=== PATIENT | female | born 1950 | race Hispanic/Latino ===

== ENCOUNTER 2020-02-16 18:37 | Inpatient (IN) | payer MEDICARE ==
[~2020-02-16] VITALS: Ht 152.4 cm; Wt 64.9 kg
[2020-02-16] MEDS ORDERED: DiphenhydrAMINE HCL 50 MG/ML VIAL ONE (19:37)
[2020-02-16] MEDS ORDERED: HYDROMORPHONE 1 MG/1 ML AMP ONE (19:38)
[2020-02-16] MEDS ORDERED: HYDROMORPHONE HCL 0.5 MG/0.5 ML ML IVP PRN (22:00)
[2020-02-16] MEDS ORDERED: ONDANSETRON HCL 4 MG/2 ML VIAL IV PRN (22:00)
[2020-02-17 00:10] VITALS: BP 152/86; PULSE 97; RESP 18; TEMP 98.1
[2020-02-17] MEDS: SODIUM CHLORIDE 0.9% 1000ML 1,000 ML IV SCH ×2 (00:27→17:19)
[2020-02-17] MEDS ORDERED: DEXTROSE 50%-WATER 50 ML DISP.SYRIN IV PRN (01:00)
[2020-02-17] MEDS ORDERED: GLUCAGON 1MG KIT 1 MG ML IM PRN (01:00)
[2020-02-17 04:00] VITALS: BP 131/84; PULSE 85; RESP 18; TEMP 98
[2020-02-17] MEDS: INSULIN HUMULIN R 100 UNIT/ML 3ML SQ SCH ×4 (06:31→20:47)
[2020-02-17] MEDS: HYDROMORPHONE HCL 0.5 MG/0.5 ML ML IVP PRN ×2 (08:10→12:14)
[2020-02-17 08:39] VITALS: BP 165/75; PULSE 92; RESP 20; TEMP 97.6
[2020-02-17] MEDS ORDERED: FAMOTIDINE/PF 20 MG/2 ML VIAL IV SCH (09:00)
[2020-02-17] MEDS ORDERED: FUROSEMIDE 40 MG TABLET PO PRN (10:45)
[2020-02-17] MEDS ORDERED: POLYETHYLENE GLYCOL 3350 17 GM POWD.PACK PO SCH (10:45)
[2020-02-17] MEDS ORDERED: SENNOSIDES 8.6 MG TABLET PO PRN (10:45)
[2020-02-17] MEDS: POLYETHYLENE GLYCOL 3350 17 GM POWD.PACK PO SCH (10:45)
[2020-02-17] MEDS ORDERED: MORPHINE SULFATE IR 15 MG TAB 15 MG TABLET PO PRN (10:45)
[2020-02-17] MEDS: LACTULOSE 20 GM/30 ML UDCUP PO PRN ×2 (10:50→20:40)
[2020-02-17] MEDS ORDERED: ONDANSETRON ODT 4 MG TAB PO PRN (11:00)
[2020-02-17 11:18] VITALS: BP 137/65; PULSE 91; RESP 18; TEMP 97.4
[2020-02-17] MEDS: METOCLOPRAMIDE 10 MG TABLET PO SCH ×2 (11:23→17:19)
[2020-02-17] MEDS: DOCUSATE SODIUM 100 MG CAP PO SCH (11:23)
[2020-02-17] MEDS ORDERED: FENTANYL 50 MCG/HR PATCH TD SCH (12:45)
[2020-02-17] MEDS ORDERED: PAMIDRONATE DISODIUM 90MG VIAL 90 MG in SODIUM CHLORIDE 0.9% 1000ML 1,000 ML IV SCH (14:00)
[2020-02-17] MEDS: MAGNESIUM OXIDE 400 MG TABLET PO SCH ×2 (14:34→20:40)
[2020-02-17] MEDS: MORPHINE-NS 50 MG/50 ML 50 ML IV PRN (14:34)
--- NOTE | 2020-02-17 15:23 | NUR ---
[id number] patient's daughter signed IM Letter, I faxed IM Letter to [id number] and placed in chart under consent tab.
--- NOTE | 2020-02-17 15:35 | NUR ---
ADITI NOTE/IA MEET WITH PATIENT IN ROOM WITH DAUGHTER AT BEDSIDE. LIVES WITH DAUGHTER AND DAUGHTERS 2 MINOR CHILDREN, INDEPENDENT WITH ADLS, HAS WHEELCHAIR, ROLLATOR WALKER AND SHOWER CHAIR, PROVIDER DAILY AND RESPITE PROGRAM IF NEEDED, AND FEELS SAFE RETURNING HOME ONCE STABLE AND DISCHARGED FROM HOSPITAL. N Addendum: 02/19/20 at 1537 by ELIJAH GAINES RN CM Amended: Links added.
[2020-02-17 16:37] VITALS: BP 173/80; PULSE 89; RESP 18; TEMP 98.1
[2020-02-17 19:00] VITALS: BP 157/75; PULSE 105; RESP 18; TEMP 98.8
[2020-02-17] MEDS ORDERED: ACETAMINOPHEN 325 MG TAB PO PRN (19:15)
--- NOTE | 2020-02-17 19:39 | NUR ---
shift summary; pt has had problem with adequate pain control throught out the day; her home meds were restarted early in the day and the ms contin oral and diluadid iv q4 hrs was not taking care of her pain, pt would still rate pain at a 10 after receiving medications; dr thomas was then consulted for pain management and her discontinued all current pain meds and ordered to start a morphine plastic process technician with basal rate and 1 hour demand; after pt had the plastic process technician for about an hour she stated her pain level is about half of what it was before rating her pain at a 5 and she was satisfied and happy with that; pt has also been c/o constipation even though she had 2 bowelmovements today; i gave her lactulose, colace and prune juice to assist with this; pt's daughter has been here with her for most of the day; dr john did come and personally talk to daughter and update her on patient; pt's daughter stated several times that if we cant get her mothers pain in adequate control she was going to check her out and drive her to [facility] where she gets her cancer treatment at and current pain medication therapy ordered.
[2020-02-17] MEDS: LOSARTAN 50 MG TABLET PO SCH (20:40)
--- NOTE | 2020-02-17 22:15 | NUR ---
anxiety and pain PATIENT COMPLAINS OF ANXIETY AND PAIN. TARIQ DANIELS SUPERVISOR SAMPLE PREPARATION NOTIFIED AND ORDERS GIVEN FOR ATIVAN AND EXTRA DOES OF MORPHINE.
[2020-02-17] MEDS ORDERED: LORAZEPAM 1 MG TABLET ONE (22:35)
[2020-02-17] MEDS ORDERED: MORPHINE SULFATE 2 MG/ML 1ML SYG ONE (22:36)
[2020-02-17] MEDS ORDERED: MORPHINE SULFATE 2 MG/ML 1ML SYG IVP ONE (22:45)
[2020-02-17] MEDS ORDERED: LORAZEPAM 1 MG TABLET PO PRN (22:45)
[2020-02-18] VITALS: BP 162/74; PULSE 112; RESP 18; TEMP 98.5
--- NOTE | 2020-02-18 01:00 | NUR ---
CONFUSION PATIENT CONFUSED TRYING TO GET OUT OF BED. BED ALARM PLACED AND PATIENT REORIENTED.
--- NOTE | 2020-02-18 02:00 | NUR ---
CONFUSION PATIENT TRYING TO GET OUT OF BED. WE TRIED TO ASSIST PATIENT TO RESTROOM BUT SHE WAS TOO DROWSY AND UNSTEADY AND WAS TAKEN BACK TO BED.
[2020-02-18 04:00] VITALS: BP 179/84; PULSE 113; RESP 19; TEMP 98.7
--- NOTE | 2020-02-18 04:30 | NUR ---
ANGRY PATIENT PULLED OUT ONE OF HER IVS AND STATED THE NURSING STAFF HAD DONE IT TO HER. PATIENT WAS REORIENT AND TOLD THE IV CAME OUT WHILE SHE WAS MOVING IN BED. I ATTEMPTED TO START ANOTHER IV AND STARTED TO STATE THAT THE STAFF WAS HARASSING HER AND TRYING TO HURT HER. I TRIED TO EXPLAIN THAT WE WERE NOT TRYING TO HURT HER BUT TRYING TO HELP HER. SHE CONTINUED TO STATE THAT I WAS BEING MEAN TO HER BY STARTING A NEW IV AND SHE DID NOT WANT ME HER NURSE. AT WHICH POINT I REACHED OUT TO THE [employer] AND CARE OF PATIENT WAS TRANSFERRED TO Wai HEMPHILL RN.
[2020-02-18] MEDS: METOCLOPRAMIDE 10 MG TABLET PO SCH ×3 (06:22→17:27)
[2020-02-18] MEDS: INSULIN HUMULIN R 100 UNIT/ML 3ML SQ SCH ×4 (06:30→20:43)
[2020-02-18 08:37] VITALS: BP 173/79; PULSE 108; RESP 17; TEMP 98.5
[2020-02-18] MEDS ORDERED: VOLTAREN 1% TP PRN (09:00)
[2020-02-18] MEDS: AFINITOR PO SCH (09:00)
[2020-02-18] MEDS: LOSARTAN 50 MG TABLET PO SCH ×2 (09:24→20:42)
[2020-02-18] MEDS: PYRIDOXINE HCL 50 MG TABLET PO SCH (09:24)
[2020-02-18] MEDS: PANTOPRAZOLE SODIUM 40 MG TABLET.DR PO SCH (09:24)
[2020-02-18] MEDS: POLYETHYLENE GLYCOL 3350 17 GM POWD.PACK PO SCH (09:24)
[2020-02-18] MEDS: MAGNESIUM OXIDE 400 MG TABLET PO SCH ×3 (09:24→20:42)
[2020-02-18] MEDS: DOCUSATE SODIUM 100 MG CAP PO SCH (10:45)
[2020-02-18] MEDS ORDERED: HYDROXYZINE HCL 50 MG/ML VIAL IM PRN (11:15)
[2020-02-18] MEDS ORDERED: HYDROXYZINE HCL 25 MG TABLET PO PRN (11:45)
[2020-02-18 12:58] VITALS: BP 175/78; PULSE 101; RESP 18; TEMP 98.9
[2020-02-18] MEDS ORDERED: HALOPERIDOL LACTATE 5 MG/ML VIAL IV PRN (13:30)
[2020-02-18] MEDS: SODIUM CHLORIDE 0.9% 1000ML 1,000 ML IV SCH (14:41)
[2020-02-18] MEDS: DEXAMETHASONE SOD PHOSPHATE 4 MG/ML 1ML VIAL IVP SCH ×2 (15:05→21:43)
--- NOTE | 2020-02-18 16:39 | NUR ---
DIRECTIVES Sw contacted by nurse Lima, daughter wanting to complete directives. Sw met with daughter Sola who states that Dr at [facility] told her that they needed to get pt's things in order, Directives, DNR and MPOA. Explained to daughter that pt is confused and under able to sign directives at this time. Educated daughter on Surrogate Decision maker Law. Pt has 7 children, who daughter states are all in agreement with making pt DNR DNI.Explained to daughter that we will need to speak to siblings to verify this. Sw educated on DNR vs OOHDNR and encouraged daughter to complete DNR DNI if this was pt's wishes. Sw to follow and assist as needed.
[2020-02-18 17:26] VITALS: BP 161/78; PULSE 102; RESP 20; TEMP 97.5
--- NOTE | 2020-02-18 18:52 | NUR ---
ASIF PLAN PATIENT LIVES WITH DAUGHTER, IND, WHEELCHAIR, R WALKER, SHOWER CHAIR, PROVIDER, HOME. Addendum: 02/18/20 at 1853 by CALI MORILLO RN CM Amended: Links added.
[2020-02-18] MEDS ORDERED: AMLODIPINE BESYLATE 5 MG TAB PO SCH (19:00)
[2020-02-18 20:00] VITALS: BP 162/79; PULSE 100; RESP 17; TEMP 98.3
[2020-02-19] VITALS: BP 168/86; PULSE 88; RESP 17; TEMP 98.1
[2020-02-19 04:00] VITALS: BP 161/78; PULSE 102; RESP 20; TEMP 97.5
[2020-02-19] MEDS: DEXAMETHASONE SOD PHOSPHATE 4 MG/ML 1ML VIAL IVP SCH ×3 (05:13→21:17)
[2020-02-19] MEDS: INSULIN HUMULIN R 100 UNIT/ML 3ML SQ SCH ×4 (05:44→20:17)
[2020-02-19] MEDS: METOCLOPRAMIDE 10 MG TABLET PO SCH ×3 (06:46→17:54)
[2020-02-19] MEDS: MORPHINE-NS 50 MG/50 ML 50 ML IV PRN (07:13)
[2020-02-19 08:00] VITALS: BP 144/88; PULSE 99; RESP 16; TEMP 97.7
[2020-02-19] MEDS: AFINITOR PO SCH (09:00)
[2020-02-19] MEDS: MAGNESIUM OXIDE 400 MG TABLET PO SCH ×3 (09:12→20:10)
[2020-02-19] MEDS: PYRIDOXINE HCL 50 MG TABLET PO SCH (09:12)
[2020-02-19] MEDS: LOSARTAN 50 MG TABLET PO SCH ×2 (09:13→20:10)
[2020-02-19] MEDS: POLYETHYLENE GLYCOL 3350 17 GM POWD.PACK PO SCH (09:13)
[2020-02-19] MEDS: PANTOPRAZOLE SODIUM 40 MG TABLET.DR PO SCH (09:13)
[2020-02-19] MEDS: SODIUM CHLORIDE 0.9% 1000ML 1,000 ML IV SCH (10:26)
[2020-02-19] MEDS: DOCUSATE SODIUM 100 MG CAP PO SCH (10:45)
[2020-02-19 11:46] VITALS: BP 124/56; PULSE 84; RESP 18; TEMP 97.7
[2020-02-19] MEDS: LACTULOSE 20 GM/30 ML UDCUP PO PRN (12:49)
--- NOTE | 2020-02-19 13:45 | NUR ---
DIRECTIVES & PALLIATIVE CARE Consult for Dr Womack Sw met with pt who is awake alert and oriented today and daughter Sola. Daughter stated that pt is not aware of severity of her condition and wants conversation with pt about directives "very general". Sw educated on MPOA and Directives. Pt states that daughter Sola has always been the one to care for her and go to MD appts and knows the most about pt's condition. Pt stated that she wants Sola to discuss decisions with her siblings and together they make decisions. Pt stated the same for any decisions related to life support and CPR. Pt signed MPOA and original given to daughter. Sw spoke to daughter outside room and informed of Dr Womack consult. Daughter states that her brother was asking if Dr womack could meet with the pt and family to discuss options. Explained to daughter that Dr Womack will be very honest and directs conversation to pt regarding her condition, prognosis and options. Daughter voiced understanding. Sw called Dr Womack who can meet with pt and family at 4 today. Daughter to have siblings come to hospital to be present for family meeting. Sw to follow and assist as needed
--- NOTE | 2020-02-19 15:30 | NUR ---
Dr Mensah Consult , and nurse Lima were present for family meeting with pt and her 3 kids and 2 daughter in laws. Pt told Dr Mensah that she was not wanting to know about her current condition, that she was aware that she had cancer and that it was spreading, but she was not wanting to know details. Pt stated she felt that knowing was only going to make her sad and anxious and she preferred not know. Dr Mensah explained that he'd seen records from [facility] and plan for her to continue radiation next week and he was in agreement with plan. Dr Mensah explained to pt that it was important for pt and family to plan for after radiation so that everyone was on same page and knew what pt's wishes were in event of an emergency. After a long talk, pt and family all expressed their feelings, pt was able to voice her wishes of wanting to be comfortable and at peace when her time came. Pt stated that she would not want to be kept on machines or be resuscitated. meeting was cut short when pt stated she needed to go to bathroom. Dr Mensah met with children outside of room and answered all questions asked. Family stated they all are on the same page with pt having radiation treatments and hospice after. Family also in agreement with signing OOHDNR so that pt does not have to. OOHDNR was completed and daughter RUTH ANN Selby signed. Family very appreciative to Dr Mensah for facilitating this conversation with pt and family. Children had not been able to have this discussion with pt and children were at peace with what they heard and what they were able to say to pt.
[2020-02-19 16:00] VITALS: BP 141/68; PULSE 94; RESP 18; TEMP 97.9
[2020-02-19 20:00] VITALS: BP 140/77; PULSE 94; RESP 18; TEMP 96.4
[2020-02-19] MEDS: MORPHINE SULFATE 15 MG TABLET.SA PO SCH (20:10)
[2020-02-19] MEDS ORDERED: MORPHINE SULFATE IR 15 MG TAB 15 MG TABLET PO SCH (21:00)
[2020-02-20] VITALS: BP 152/85; PULSE 88; RESP 18; TEMP 97.5
[2020-02-20 04:00] VITALS: BP 124/53; PULSE 82; RESP 16; TEMP 98.1
[2020-02-20] MEDS: SODIUM CHLORIDE 0.9% 1000ML 1,000 ML IV SCH (05:25)
[2020-02-20] MEDS: DEXAMETHASONE SOD PHOSPHATE 4 MG/ML 1ML VIAL IVP SCH ×2 (05:25→15:55)
[2020-02-20] MEDS: INSULIN HUMULIN R 100 UNIT/ML 3ML SQ SCH ×3 (05:33→16:30)
[2020-02-20] MEDS: AFINITOR PO SCH (08:14)
[2020-02-20] MEDS: PYRIDOXINE HCL 50 MG TABLET PO SCH (09:04)
[2020-02-20] MEDS: PANTOPRAZOLE SODIUM 40 MG TABLET.DR PO SCH (09:04)
[2020-02-20] MEDS: METOCLOPRAMIDE 10 MG TABLET PO SCH ×3 (09:04→15:55)
[2020-02-20] MEDS: MORPHINE SULFATE 15 MG TABLET.SA PO SCH (09:05)
[2020-02-20] MEDS: LOSARTAN 50 MG TABLET PO SCH (09:05)
[2020-02-20] MEDS: MAGNESIUM OXIDE 400 MG TABLET PO SCH ×2 (09:05→15:55)
[2020-02-20] MEDS: POLYETHYLENE GLYCOL 3350 17 GM POWD.PACK PO SCH (09:06)
[2020-02-20 09:07] VITALS: BP 150/76; PULSE 78; RESP 17; TEMP 98.9
[2020-02-20] MEDS: DOCUSATE SODIUM 100 MG CAP PO SCH (10:45)
[2020-02-20 11:00] VITALS: BP 143/70; PULSE 81; RESP 19; TEMP 98.9
--- NOTE | 2020-02-20 14:43 | NUR ---
[id number] patient signed IM Letter to [phone] and placed in chart under consent tab.
[2020-02-20 16:00] VITALS: BP 148/69; PULSE 80; RESP 18; TEMP 98.7
--- NOTE | 2020-02-20 17:00 | NUR ---
DISCHARGE INSTRUCTION PROVIDED TO PATIENT AND DAUGHTER DELANEY VIA PHONE . BOTH VERBALIZED UNDERSTANDING
== END 2020-02-20 18:00 | disposition home or self-care (01) | DRG 947 ==
LOC: EDH 18:37 → EDHIP 21:47 → OBSVTOIN 21:47 → 3DH 02-17 00:15
PROVIDERS: ADMIT Internal Medicine; ATTEND Internal Medicine
DX: G89.3 Neoplasm related pain (acute) (chronic) (principal); G93.41 Metabolic encephalopathy; C64.9 Malignant neoplasm of unspecified kidney, except renal pelvis; C79.31 Secondary malignant neoplasm of brain; C79.51 Secondary malignant neoplasm of bone; E44.0 Moderate protein-calorie malnutrition; C78.00 Secondary malignant neoplasm of unspecified lung; E44.1 Mild protein-calorie malnutrition; M79.89 Other specified soft tissue disorders; N18.9 Chronic kidney disease, unspecified; I12.9 Hypertensive chronic kidney disease with stage 1 through stage 4 chronic kidney disease, or unspecified chronic kidney disease; E11.22 Type 2 diabetes mellitus with diabetic chronic kidney disease; D64.9 Anemia, unspecified; E78.5 Hyperlipidemia, unspecified; I25.10 Atherosclerotic heart disease of native coronary artery without angina pectoris; R62.7 Adult failure to thrive; R64 Cachexia; Z79.891 Long term (current) use of opiate analgesic; Z87.891 Personal history of nicotine dependence; Z95.0 Presence of cardiac pacemaker; Z96.651 Presence of right artificial knee joint; Z90.49 Acquired absence of other specified parts of digestive tract; Z68.27 Body mass index [BMI] 27.0-27.9, adult; Z88.8 Allergy status to other drugs, medicaments and biological substances; Z91.041 Radiographic dye allergy status

== ENCOUNTER 2020-02-21 15:20 | Inpatient (IN) | payer MEDICARE ==
[~2020-02-21 15:20] MED LIST: DICL2100G TP; EVER5TAB PO; FURO40TA5 PO; LOSA50TA64 PO; MAGN400C PO; METO10TA3 PO; OMEP40CA13 PO; ONDA8TAB12 PO; PYRI100T10 PO; SENN8.6T32 PO
[2020-02-21 15:59] LABS: BASOPHILS % (AUTO) 0.1 % (0.0-5.0); HEMATOCRIT 30.9 % (36-48); LYMPHOCYTES % (AUTO) 1.5 % (21.0-51.0); MEAN CORPUSCULAR HGB CONC 32.7 g/dL (32.0-36.0); MEAN CORPUSCULAR VOLUME 88.8 fL (79-99); MONOCYTES % (AUTO) 4.9 % (3.0-13.0); NEUTROPHILS % (AUTO) 92.8 % (40.0-77.0); PLATELET COUNT (AUTO) 282 K/uL (130-400); RED BLOOD CELL COUNT(AUTO) 3.48 MIL/uL (4.00-5.50); RED CELL DISTRIBUTION WIDTH 14.1 % (11.0-15.5); WHITE BLOOD COUNT (AUTO) 17.8 K/uL (4.8-10.8)
[2020-02-21 16:12] LABS: APPEARANCE,URINE Clear (CLEAR); BILIRUBIN,URINE Negative (NEGATIVE); COLOR,URINE Yellow (YELLOW); GLUCOSE, URINE (UA) Negative (NEGATIVE); KETONES,URINE Trace mg/dL (NEGATIVE); LEUKOCYTE ESTERASE ,URINE Negative (NEGATIVE); NITRATE,URINE Negative (NEGATIVE); OCCULT BLOOD,URINE Negative (NEGATIVE); PROTEIN,URINE Trace mg/dL (NEGATIVE)
[2020-02-21 16:15] LABS: INR 0.96 (0.85-1.15); PARTIAL THROMBOPLASTIN TIME 23.2 SEC (26.3-35.5); PROTHROMBIN TIME 10.4 SEC (9.6-11.6)
[2020-02-21 16:16] LABS: CREATININE 1.9 mg/dL (0.5-1.5); POTASSIUM 3.6 mmol/L (3.5-5.1)
[2020-02-21 16:21] LABS: ALBUMIN 3.1 g/dL (3.5-5.0); BILIRUBIN,TOTAL 0.2 mg/dL (0.2-1.0); TOTAL PROTEIN, SERUM 7.6 g/dL (6.0-8.3)
[2020-02-21 16:27] LABS: RBC,URINE 0-1 /HPF (0-1)
[2020-02-21 16:28] LABS: BACTERIA,URINE Few /HPF (None Seen); SQUAMOUS EPITHELIAL CELL,UR Few /HPF (0-2)
[2020-02-21 16:29] LABS: B-TYPE NATRIURETIC PEPTIDE 819 pg/mL (0-100)
[2020-02-21] MEDS ORDERED: ONDANSETRON HCL 4 MG/2 ML VIAL ONE (16:36)
[2020-02-21] MEDS ORDERED: HYDROMORPHONE HCL 0.5 MG/0.5 ML ML ONE ×2 (16:36→17:19)
[2020-02-21] MEDS: SODIUM CHLORIDE 0.9% 1000ML 1,000 ML IV SCH (18:06)
[2020-02-21] MEDS ORDERED: ACETAMINOPHEN 325 MG TAB PO PRN ×2 (18:15)
[2020-02-21] MEDS ORDERED: HYDROXYZINE HCL 50 MG/ML VIAL IM PRN (18:15)
[2020-02-21] MEDS ORDERED: HYDROMORPHONE HCL 2 MG/ML VIAL IVP PRN (18:15)
[2020-02-21] MEDS ORDERED: ONDANSETRON HCL 4 MG/2 ML VIAL IV PRN (18:15)
[2020-02-21] MEDS ORDERED: LACTULOSE 20 GM/30 ML UDCUP PO PRN (18:15)
[2020-02-21] MEDS ORDERED: HYDRALAZINE HCL 20 MG/ML VIAL IV PRN (18:15)
[2020-02-21] MEDS ORDERED: HYDROXYZINE HCL 25 MG TABLET ONE (19:20)
[2020-02-21] MEDS ORDERED: ACETAMINOPHEN 325 MG TAB ONE (19:30)
[2020-02-21] MEDS ORDERED: MORPHINE SULFATE 15 MG TABLET.SA PO ONE (20:59)
[2020-02-21] MEDS ORDERED: FAMOTIDINE 20MG TAB 20 MG TAB ONE (20:59)
[2020-02-21] MEDS: MORPHINE SULFATE 15 MG TABLET.SA PO SCH (21:00)
[2020-02-21 22:45] VITALS: BP 154/73
[2020-02-22] VITALS: BP 154/73
[2020-02-22] MEDS: HYDROMORPHONE 1 MG/1 ML AMP IVP PRN ×2 (02:52→14:44)
[2020-02-22 04:00] VITALS: BP 137/75
[2020-02-22 05:26] LABS: BASOPHILS % (AUTO) 0.1 % (0.0-5.0); HEMATOCRIT 27.3 % (36-48); LYMPHOCYTES % (AUTO) 3.4 % (21.0-51.0); MEAN CORPUSCULAR HEMOGLOBIN 29.2 pg (27.0-33.0); MEAN CORPUSCULAR HGB CONC 32.6 g/dL (32.0-36.0); MEAN CORPUSCULAR VOLUME 89.5 fL (79-99); MONOCYTES % (AUTO) 7.4 % (3.0-13.0); NEUTROPHILS % (AUTO) 88.5 % (40.0-77.0); PLATELET COUNT (AUTO) 226 K/uL (130-400); RED BLOOD CELL COUNT(AUTO) 3.05 MIL/uL (4.00-5.50); RED CELL DISTRIBUTION WIDTH 14.4 % (11.0-15.5); WHITE BLOOD COUNT (AUTO) 12.3 K/uL (4.8-10.8)
[2020-02-22 05:52] LABS: CREATININE 1.7 mg/dL (0.5-1.5); POTASSIUM 3.2 mmol/L (3.5-5.1)
[2020-02-22] MEDS: SODIUM CHLORIDE 0.9% 1000ML 1,000 ML IV SCH ×2 (07:26→20:46)
[2020-02-22 08:00] VITALS: BP 141/74
[2020-02-22] MEDS ORDERED: POTASSIUM CHLORIDE 20MEQ/100ML 100 ML IV PRN (08:45)
[2020-02-22] MEDS ORDERED: LIDOCAINE HCL-MPF 1% 2ML VIAL IJ PRN (08:45)
[2020-02-22] MEDS: MORPHINE SULFATE 15 MG TABLET.SA PO SCH ×2 (09:00→21:00)
[2020-02-22] MEDS: HYDROXYZINE HCL 25 MG TABLET PO PRN ×2 (10:15→18:39)
[2020-02-22] MEDS: FAMOTIDINE 20MG TAB 20 MG TAB PO SCH (10:15)
[2020-02-22 11:55] VITALS: BP 148/75
[2020-02-22] MEDS ORDERED: DICLOFENAC SODIUM TP PRN (13:00)
[2020-02-22] MEDS ORDERED: APPL TP PRN (13:00)
[2020-02-22] MEDS: MAGNESIUM OXIDE 400 MG TABLET PO SCH ×2 (14:41→18:39)
[2020-02-22] MEDS: POLYETHYLENE GLYCOL 3350 17 GM POWD.PACK PO SCH (14:41)
[2020-02-22 16:00] VITALS: BP 155/87
[2020-02-22] MEDS ORDERED: AMLODIPINE BESYLATE 5 MG TAB PO SCH (16:00)
[2020-02-22] MEDS: POTASSIUM CHLORIDE 20 MEQ ERTAB PO PRN (18:39)
[2020-02-22] MEDS: METOCLOPRAMIDE 10 MG TABLET PO SCH (18:39)
[2020-02-22 19:00] VITALS: BP 162/72
--- NOTE | 2020-02-22 20:00 | NUR ---
PATIENT'S IV REMOVED BY DAY SHIFT NURSE DUE TO PATIENT VOICING DISCOMFORT TO SITE. DAY STAFF WAS LATER UNABLE TO RE-INSERT NEW IV. CURRENTLY PATIENT BECOMING INCREASINGLY CONFUSED AND REFUSES FOR ME TO GET CLOSE TO HER TO ATTEMPT TO START NEW IV. WILL ATTEMPT AT A LATER TIME.
[2020-02-22] MEDS: SENNOSIDES 8.6 MG TABLET PO SCH (21:00)
[2020-02-22] MEDS: DOCUSATE SODIUM 100 MG CAP PO SCH (21:00)
--- NOTE | 2020-02-22 23:00 | NUR ---
PATIENT CONTINUES INCREASINGLY CONFUSED. SHE REFUSES SCHEDULED NIGHT MEDS AND CONTINUES TO REFUSE FOR ME TO ATTEMPT TO START NEW IV. STARTS TO YELL WHEN STAFF APPROACHES TO RENDER CARE, ATTEMPT TO ASSIST TO RESTROOM/BEDSIDE COMMODE. STATES SHE WANTS TO GO TO RESTROOM TO CLEAN HERSELF, SHE IS UNSTEADY ON HER FEET, BUT DOES NOT WANT TO BE TOUCHED WHEN APPROACHED TO ASSIST. AT TIMES BECOMES AGGRESSIVE TOWARDS STAFF. WILL CONTINUE TO MONITOR.
--- NOTE | 2020-02-22 23:45 | NUR ---
PATIENT VERY CONFUSED, REMOVED GOWN, DIAPER AND SHEETS AND THROWING ON FLOOR. SHE STARTED YELLING AT STAFF AND THROWING OBJECTS AT STAFF WHEN APPROACHED TO CHANGE WET CLOTHING AND LINEN. THROWING AND THREATENING TO THROW PEE AT STAFF (PLACES HAND ON PRIVATE PARTS AND MAKES GESTURES IF THROWING PEE AT STAFF). ATTEMPTS TO REACH OBJECTS IN ROOM AND BECOMES UPSET STAFF REMOVES OBJECTS FROM WITHIN REACH. CALLED Gaby ROBERTSON N.P. TO UPDATE ON INCREASED CONFUSION/RESTLESSNESS/AGITATION. NEW ORDER GIVEN FOR ATARAX 25MG IM X1, BUT NON AVAILABLE.
[2020-02-23] VITALS (7 sets, daily range): BP systolic 128–205; BP diastolic 70–96
[2020-02-23] MEDS: HYDROXYZINE HCL 50 MG/ML VIAL IM SCH
--- NOTE | 2020-02-23 00:35 | NUR ---
Gaby Salas.Audra WAS INFORMED OF ATARAX NOT AVAILABLE. NEW ORDER GIVEN FOR ATIVAN 0.5MG IM X1 DOSE DUE TO PERSISTENT CONFUSION/RESTLESSNESS/AGGRESSIVENESS.
[2020-02-23] MEDS ORDERED: LORAZEPAM 2 MG/ML 1 ML VIAL IM ONE (00:45)
--- NOTE | 2020-02-23 01:50 | NUR ---
PATIENT CONTINUES CONFUSED, BUT MORE COOPERATIVE AND NON-AGGRESSIVE AT THIS TIME. X2 STAFF MEMBERS WERE ABLE TO APPROACH HER TO CHANGE HER GOWN AND LINEN. I APPROACHED TO SEE IF I COULD START NEW IV, BUT SHE PULLED AWAY AND ASKED NOT TO POKE HER.
--- NOTE | 2020-02-23 05:30 | NUR ---
PATIENT RESTING IN BED WITH EYES CLOSED, BUT IMMEDIATELY OPENS EYES WHEN I ATTEMPT TO CHECK HER ARMS TO TRY AND START NEW IV AND AGAIN PULLS AWAY. I INFORMED HER I COULD GIVEN HER PAIN MEDICATION THROUGH A NEW IV, BUT DENIES PAIN. CONTINUES TO REQUIRE CLOSE MONITORING.
[2020-02-23 06:09] LABS: BASOPHILS % (AUTO) 0.1 % (0.0-5.0); EOSINOPHILS % (AUTO) 0.1 % (0.0-8.0); LYMPHOCYTES % (AUTO) 2.6 % (21.0-51.0); MEAN CORPUSCULAR HEMOGLOBIN 29.3 pg (27.0-33.0); MEAN CORPUSCULAR HGB CONC 32.9 g/dL (32.0-36.0); MEAN CORPUSCULAR VOLUME 89.1 fL (79-99); MONOCYTES % (AUTO) 5.9 % (3.0-13.0); NEUTROPHILS % (AUTO) 90.7 % (40.0-77.0); PLATELET COUNT (AUTO) 186 K/uL (130-400); RED BLOOD CELL COUNT(AUTO) 3.48 MIL/uL (4.00-5.50); RED CELL DISTRIBUTION WIDTH 14.2 % (11.0-15.5); WHITE BLOOD COUNT (AUTO) 15.5 K/uL (4.8-10.8)
[2020-02-23 06:19] LABS: POTASSIUM 3.3 mmol/L (3.5-5.1)
[2020-02-23] MEDS: METOCLOPRAMIDE 10 MG TABLET PO SCH ×3 (07:30→17:00)
[2020-02-23] MEDS: PANTOPRAZOLE SODIUM 40 MG TABLET.DR PO SCH (07:30)
[2020-02-23] MEDS: MAGNESIUM OXIDE 400 MG TABLET PO SCH ×3 (08:00→17:00)
--- NOTE | 2020-02-23 08:00 | NUR ---
PT CONFUSED IN REPORT FROM BESS SEBASTIAN PT WAS CONFUSED AND PULLED IV OUT. NO IV ACCESS. THIS MORNING I TRIED TO INSERT AN IV PT REFUSED.
[2020-02-23] MEDS: EVEROLIMUS 5 MG PO SCH (09:00)
[2020-02-23] MEDS: FAMOTIDINE 20MG TAB 20 MG TAB PO SCH (09:00)
[2020-02-23] MEDS: POLYETHYLENE GLYCOL 3350 17 GM POWD.PACK PO SCH (09:00)
[2020-02-23] MEDS: SENNOSIDES 8.6 MG TABLET PO SCH ×2 (09:00→20:49)
[2020-02-23] MEDS: MORPHINE SULFATE 15 MG TABLET.SA PO SCH ×2 (09:00→20:47)
[2020-02-23] MEDS: AMLODIPINE BESYLATE 5 MG TAB PO SCH (09:00)
[2020-02-23] MEDS: PYRIDOXINE HCL 50 MG TABLET PO SCH (09:00)
[2020-02-23] MEDS: DOCUSATE SODIUM 100 MG CAP PO SCH ×2 (09:00→20:48)
--- NOTE | 2020-02-23 09:00 | NUR ---
PT REFUSED ALL MEDS THREW SOME OF HER MEDS TO THE FLOOR.
[2020-02-23] MEDS ORDERED: CLONIDINE HCL 0.1 MG TABLET PO PRN (09:15)
[2020-02-23] MEDS ORDERED: POTASSIUM CHLORIDE 20 MEQ ERTAB PO SCH (09:15)
--- NOTE | 2020-02-23 09:44 | NUR ---
DCP: [facility] Sw left message for daughter Sola [phone] to discuss dcp. Waiting for call back. ANTONIETA Grant aware
--- NOTE | 2020-02-23 10:05 | NUR ---
PT. CONFUSED PT IS TOUCHING HER VAGINAL AREA AND THEN TRYING TO TOUCH THE AUTOMOTIVE TIRE TESTER DAVID TO HER FACE.
[2020-02-23] MEDS: SODIUM CHLORIDE 0.9% 1000ML 1,000 ML IV SCH ×2 (10:06→20:49)
--- NOTE | 2020-02-23 11:04 | NUR ---
DAUGHTER DELANEY SPOKE TO DAUGHTER DELANEY WHO IS POA, TO GIVE AN UPDATE OF HER MOM STATUS OF BEING CONFUSED OVER NIGHT. DAUGHTER WANTED TO KNOW WHAT WAS GIVEN IN THE LAST 48 HRS. SHE STATES, THAT ONE OF MEDS MADE HER CONFUSED. I WENT OVER THE LIST OF MEDS THOROUGHLY. I EXPLAINED NOTHING HAS BEEN GIVEN THIS AM D/T PT PULLING OUT IV AND REFUSING MEDS. I GAVE HER MY EXTENSION SO, SHE CAN CALL ME FOR UPDATES AND I STATED I WILL CALL HER IF ANYTHING CHANGES. SHE IS VERY CONCERNED ABOUT HER MOM, STATES THIS BEHAVIOR IS NOT LIKE HER.
--- NOTE | 2020-02-23 11:13 | NUR ---
PT IS RESTING EYES CLOSED IN BED, WILL CONTINUE TO MONITOR.
[2020-02-23] MEDS ORDERED: CLONIDINE 0.2 MG/ 24 HR PATCH TD SCH (12:00)
--- NOTE | 2020-02-23 12:00 | NUR ---
DR. DAUGHERTY P SPOKE TO DR. DAUGHERTY, REGARDING B/P 205/, PT REFUSES ORAL MEDS, NEW ORDER CLODINE PATCH 0.2 MG. WILL CONTINUE TO MONITOR.
--- NOTE | 2020-02-23 13:00 | NUR ---
CHART REVIEWED, NOTES LAST ADMIT- HX CANCER, WITH METS TO [facility], FOR APPT AT [facility], SOME BIZARRE BEHAVIOS NOTED . CM NOTES THAT CHART STATES PT HAS BRAIN METS. RIYA SEBASTIAN SPOKE TO DAUGHTER FOR A LONG CATALINO RN STATES THAT DAUGHTER ADVISED SHE HAS METS IN THE FRONTAL LOBE. CM WILL FOLLOW. PROGNOSIS GRIM, PROB NOT ABLE TO CONTROL THE BEHAVIORS SW CONSULT Addendum: 02/23/20 at 1445 by ALTON PELAYO RN CM Amended: Links added.
--- NOTE | 2020-02-23 13:40 | NUR ---
MITCHEL spoke to daughter who states that she has been on the phone with [facility] regarding plan. Daughter feels that pt would not be able to make it to [place] nor remain still for 25mintues for radiation treatment. [facility] suggested pt have radiation treatments here in the [place] instead of [place]. Daughter not sure how to arrange this. MITCHEL advised daughter to call [facility] and speak to Dr Hernandez or his nurse and explain situation and they can guide her on process of arranging treatments here. Daughter to call [facility] and recontact Sw with plan
--- NOTE | 2020-02-23 14:16 | NUR ---
DCP: HOME AND F?U WITH [facility] WED @ 8:45am Sw spoke to daughter who states she spoke to [facility] and discussed having radiation treatments here. Pt has appt at 8:45am Wed to begin process of treatments. Daughter also meeting with hospice agency that sister contacted to get informed on process of admission. If pt is unable to start or have treatments hospice is plan. Daughter aware that dc is for tomorrow. ANTONIETA Grant informed of plan
--- NOTE | 2020-02-23 19:47 | NUR ---
02/23/20 @ 1930: I spoke to patient's daughter who called to check on patient's status. Informed her patient was asleep. Also made her aware patient has not been wanting for us to start another IV. She stated she needed to talk to the patient to see why she does not want an IV started. 02/23/20 @ 1947: Patient removing her clothes and linen. I called patient's daughter to let her know she was awake. Patient attempted to talk to patient but pt would close her eyes and only speak in very low tone. Daughter then spoke to Walter SEBASTIAN and I regarding not wanting the IV restarted, unless patient would need it for pain medication.
[2020-02-23] MEDS: POTASSIUM CHLORIDE 20 MEQ ERTAB PO PRN (21:38)
[2020-02-24] MEDS: HYDROXYZINE HCL 50 MG/ML VIAL IM SCH
[2020-02-24 03:33] VITALS: BP 171/79
[2020-02-24 05:21] LABS: BASOPHILS % (AUTO) 0.1 % (0.0-5.0); EOSINOPHILS % (AUTO) 0.1 % (0.0-8.0); HEMATOCRIT 27.1 % (36-48); MEAN CORPUSCULAR HEMOGLOBIN 29.1 pg (27.0-33.0); MEAN CORPUSCULAR HGB CONC 33.2 g/dL (32.0-36.0); MEAN CORPUSCULAR VOLUME 87.7 fL (79-99); NEUTROPHILS % (AUTO) 91.3 % (40.0-77.0); PLATELET COUNT (AUTO) 206 K/uL (130-400); RED BLOOD CELL COUNT(AUTO) 3.09 MIL/uL (4.00-5.50); RED CELL DISTRIBUTION WIDTH 14.2 % (11.0-15.5); WHITE BLOOD COUNT (AUTO) 12.5 K/uL (4.8-10.8)
[2020-02-24 05:30] LABS: CREATININE 0.9 mg/dL (0.5-1.5)
[2020-02-24 05:33] LABS: POTASSIUM 2.9 mmol/L (3.5-5.1)
[2020-02-24] MEDS ORDERED: POTASSIUM CHLORIDE 10% ELIXIR 20 MEQ/15 ML UDCUP PO SCH (05:45)
[2020-02-24] MEDS: PANTOPRAZOLE SODIUM 40 MG TABLET.DR PO SCH (06:25)
[2020-02-24] MEDS: METOCLOPRAMIDE 10 MG TABLET PO SCH ×2 (06:25→11:30)
[2020-02-24] MEDS: POTASSIUM CHLORIDE 10% ELIXIR 20 MEQ/15 ML UDCUP PO PRN ×2 (06:25→06:26)
[2020-02-24 07:00] VITALS: BP 152/90
[2020-02-24] MEDS: MAGNESIUM OXIDE 400 MG TABLET PO SCH ×2 (08:00→12:00)
[2020-02-24] MEDS: MORPHINE SULFATE 15 MG TABLET.SA PO SCH (08:32)
[2020-02-24] MEDS: AMLODIPINE BESYLATE 5 MG TAB PO SCH (08:34)
[2020-02-24] MEDS: EVEROLIMUS 5 MG PO SCH (08:44)
[2020-02-24] MEDS: DOCUSATE SODIUM 100 MG CAP PO SCH (08:44)
[2020-02-24] MEDS: POLYETHYLENE GLYCOL 3350 17 GM POWD.PACK PO SCH (08:44)
[2020-02-24] MEDS: PYRIDOXINE HCL 50 MG TABLET PO SCH (08:45)
[2020-02-24] MEDS: SENNOSIDES 8.6 MG TABLET PO SCH (08:45)
[2020-02-24] MEDS: FAMOTIDINE 20MG TAB 20 MG TAB PO SCH (08:45)
[2020-02-24] MEDS ORDERED: DOCU-275 PO (09:32)
[2020-02-24] MEDS ORDERED: AMLO5TAB4 PO (09:32)
[2020-02-24] MEDS ORDERED: HYDR-3421 PO (09:32)
--- NOTE | 2020-02-24 11:13 | NUR ---
CALL TO DAUGHTER RE DISCHARGE TO [facility]- DISCUSSED TRANSPORT HOME- DAUGHTER WANTED TO DROP HAMMER OPERATOR HELPER PATIENT IN CAR- ADVISED HER SHE NEED A SECOND PERSON AND HER MOTHER TO SIT IN THE BACK, COMFORTABLE- OFFERING EMS TRANSPORT- PATIENTS BEHAVIOR VERY UNPREDICTABLE, MAY CAUSE DAUGHTER TO BE DISTRACTED DRIVING- METS TO BRAIN DISCUSSED DAUGHTER STATES MEDS [facility] GAVE INHOSPITAL CAUSED CHANGE IN PATIENT BEHAVOIR WHILE IN HOSPITAL . WANTS COPY OF MEDS GIVEN. ADVISED HER HOSPICE WILL GET LIST OF MEDS, CAN SHARE WITH HER. VERBALIZED UNDERSTANIDNG, AND CONCURRED EMS TRANSPORT SAFER. Addendum: 02/24/20 at 1859 by ALTON PELAYO RN Amended: Links added.
--- NOTE | 2020-02-24 11:18 | NUR ---
ARACELI HARMON GAVE REPORT TO [facility] AND H [facility] P.
[2020-02-24] MEDS: SODIUM CHLORIDE 0.9% 1000ML 1,000 ML IV SCH (12:46)
--- NOTE | 2020-02-24 15:05 | NUR ---
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 THEY'RE ON THE WAY IT SHOULD BE ABOUT A HALF HOUR. DAUGHTER DELANEY UPSET BECAUSE IT BEEN AT LEAST 3-4 HOURS OF WAITING FOR TRANSFER.
--- NOTE | 2020-02-24 15:41 | NUR ---
EMS EMS CAME TO CLAY ARTIST PT. D/C PAPERS GIVEN TO EMS TO GIVE TO DAUGHTER DELANEY. PT V/S STABLE SHE WAS A/A X2 , NO COMPLAINTS OF PAIN. ALSO CALLED DAUGHTER DELANEY TO MAKE HER AWARE THAT PT IS ON HER WAY HOME. DAUGHTER STATED THEY ARE WAITING FOR HER AT THE HOUSE. ALSO D/C PLANS DISCUSSED WITH DELANEY TO F/U WITH PCP 2-3 DAYS.
== END 2020-02-24 15:30 | disposition hospice, home (50) | DRG 947 ==
LOC: EDH 15:20 → EDHIP 18:06 → OBSVTOIN 18:06 → 3AH 21:18
PROVIDERS: ADMIT Internal Medicine; ATTEND Internal Medicine
DX: G89.3 Neoplasm related pain (acute) (chronic) (principal); G93.41 Metabolic encephalopathy; C64.9 Malignant neoplasm of unspecified kidney, except renal pelvis; C79.51 Secondary malignant neoplasm of bone; C79.89 Secondary malignant neoplasm of other specified sites; C79.31 Secondary malignant neoplasm of brain; I10 Essential (primary) hypertension; E87.6 Hypokalemia; E11.9 Type 2 diabetes mellitus without complications; Z96.651 Presence of right artificial knee joint; E07.9 Disorder of thyroid, unspecified; Z85.528 Personal history of other malignant neoplasm of kidney; Z95.0 Presence of cardiac pacemaker; Z90.49 Acquired absence of other specified parts of digestive tract; Z88.8 Allergy status to other drugs, medicaments and biological substances; Z80.9 Family history of malignant neoplasm, unspecified
CPT/HCPCS: 36415; 71045; 72131; 72170; 80048; 80053; 81001; 82550; 83735; 83880; 84484; 85025; 85610; 85730; 93005; 93971; G0378; J1170; J2060; J2405; J3410